=== PATIENT | female | born 1965 | race Asian ===

== ENCOUNTER 2019-08-13 05:46 | Emergency (ER) | payer MEDICAID ==
[~2019-08-13] VITALS: Ht 165.1 cm; Wt 78.0 kg
[2019-08-13 05:54] VITALS: BP_SYST 165
--- NOTE | 2019-08-13 06:03 | NUR ---
Pt placed to ER bed 04, to gown, to cardiac rehabilitation program director. Pt report given to TOMY Gonzalez.
--- NOTE | 2019-08-13 06:15 | NUR ---
Dr. Mosquera at bedside.
--- NOTE | 2019-08-13 06:20 | NUR ---
Pt brought in by . Pt awake, alert, oriented x4. Pt states that she has been to many hospitals for blood tests and treatment, pt states that she has had a headache for two months, and a constant "burning all of my insides". Pt rates headache and persistent "all over internal burning" as 10/10 pain. Pt denies chest pain, nausea, vomiting, diarrhea, shortness of breath or other medical complaint at this time. Pt states that she does not want labs, xrays, ekg, as she already had all of these tests done multiple times with no acceptable result. Pt appears anxious and unrested. pt states she feels anxious. pt is not guarding, no s/s of acute distress.VSS
[2019-08-13] MEDS ORDERED: LORazepam 2 MG/ML VIAL IVP ONE (06:30)
--- NOTE | 2019-08-13 06:30 | NUR ---
Pt refused blood draw, EKG, Xrays
--- NOTE | 2019-08-13 06:40 | NUR ---
Pt went to cafeteria for food.
[2019-08-13 07:15] VITALS: BP_SYST 144
--- NOTE | 2019-08-13 07:15 | NUR ---
Patient given written and verbal discharge instructions and verbalizes understanding. ER MD discussed with patient the results and treatment provided. Patient in stable condition. ID arm band removed. IV catheter removed intact and dressing applied, no active bleeding. No Rx given. Patient educated on pain management and to follow up with PMD. Pain Scale 0/10. Opportunity for questions provided and answered.
== END 2019-08-13 07:15 | disposition home or self-care (01) ==
LOC: SED 05:46
DX: F45.0 Somatization disorder (principal); I10 Essential (primary) hypertension; F41.9 Anxiety disorder, unspecified
CPT/HCPCS: 96374; 99283; J2060

== ENCOUNTER 2019-11-19 23:51 | Emergency (ER) | payer MEDICAID ==
[~2019-11-19] VITALS: Ht 170.2 cm; Wt 81.6 kg
[2019-11-19 23:51] VITALS: BP_SYST 177
[2019-11-20] MEDS: NACL 0.9% 1,000 ML IV ONE ×2 (00:14→01:23)
[2019-11-20] MEDS: ONDANSETRON HCL 4 MG/2 ML VIAL IVP ONE (00:15)
[2019-11-20] MEDS: KETOROLAC TROMETHAMINE 30 MG VIAL IVP ONE (00:15)
[2019-11-20] MEDS: DIPHENHYDRAMINE INJ 50 MG/ML VIAL IVP ONE (00:16)
[2019-11-20 00:55] LABS: BASOPHILS # (AUTO) 0.1 K/uL (0.0-0.2); BASOPHILS % (AUTO) 1.1 % (0.0-2.0); EOSINOPHILS # (AUTO) 0.1 K/uL (0.0-0.4); EOSINOPHILS % (AUTO) 1.1 % (0.0-4.0); HEMATOCRIT 38.2 % (36-48); HEMOGLOBIN 12.5 g/dL (12.0-16.0); LYMPHOCYTES # (AUTO) 3.9 K/uL (1.0-5.5); LYMPHOCYTES % (AUTO) 36.8 % (20.5-51.5); MEAN CORPUSCULAR HEMOGLOBIN 29 pg (27-31); MEAN CORPUSCULAR HGB CONC 33 % (32-36); MEAN CORPUSCULAR VOLUME 88 fL (79.0-98.0); MONOCYTES # (AUTO) 0.7 K/uL (0.0-1.0); MONOCYTES % (AUTO) 6.7 % (1.7-9.3); NEUTROPHILS # (AUTO) 5.7 K/uL (1.8-7.7); NEUTROPHILS % (AUTO) 54.3 % (40.0-70.0); PLATELET COUNT (AUTO) 319 K/uL (130-430); RED BLOOD CELL COUNT(AUTO) 4.36 MIL/uL (4.2-6.2); RED CELL DISTRIBUTION WIDTH 14.9 % (9.0-15.0); WHITE BLOOD COUNT (AUTO) 10.5 K/uL (4.8-10.8)
[2019-11-20 01:09] LABS: CALCIUM 8.5 mg/dL (8.4-11.0); CREATININE 0.84 mg/dL (0.55-1.30); POTASSIUM 3.6 mmol/L (3.5-5.1)
[2019-11-20 01:20] LABS: ALBUMIN 3.2 g/dL (3.4-4.8); TOTAL BILIRUBIN 0.2 mg/dL (0.0-1.0)
[2019-11-20 02:10] VITALS: BP_SYST 143
== END 2019-11-20 02:10 | disposition home or self-care (01) ==
LOC: SED 23:51
DX: G44.209 Tension-type headache, unspecified, not intractable (principal); I10 Essential (primary) hypertension; F41.9 Anxiety disorder, unspecified
CPT/HCPCS: 36415; 80053; 83690; 85025; 96374; 96375; 99284; J1200; J1885; J2405; J7030

== ENCOUNTER 2020-03-27 22:47 | Emergency (ER) | payer MEDICAID, SELFPAY ==
[~2020-03-27] VITALS: Ht 167.6 cm; Wt 77.1 kg
[2020-03-27 22:47] VITALS: BP_SYST 151
--- NOTE | 2020-03-27 22:47 | NUR ---
Patient to ER bed 3 to gown for evaluation. Side rails up. Report given to NOVEMBER.
--- NOTE | 2020-03-27 22:55 | NUR ---
Patient to ER bed 3 to gown for evaluation. Side rails up.
--- NOTE | 2020-03-27 22:56 | NUR ---
Patient came to ER with family. C/O chest pain x today. Patient states "had chest pain since 1730 PM today, had chest pain over 1 year, my doctor said heart normal after ran test, had NTG for chest pain." Hx HTN per patient.
--- NOTE | 2020-03-27 22:57 | NUR ---
ER at bedside examining patient.
[2020-03-27] MEDS ORDERED: ASPIRIN 325 MG TABLET PO ONE (23:15)
[2020-03-27] MEDS ORDERED: ENOXAPARIN SODIUM 80 MG/0.8 ML SYRINGE SUBCUT ONE (23:15)
--- NOTE | 2020-03-27 23:15 | NUR ---
# 22 gauge angiocath placed to RAC. Use of asceptic technique. Opsite placed over site. Blood return noted. Blood for lab drawn from site. Flushed with 10 cc of normal saline. No evidence of infiltration noted. Patient tolerated well.
--- NOTE | 2020-03-27 23:23 | NUR ---
X-ray at bedside.
[2020-03-27 23:27] LABS: MEAN CORPUSCULAR VOLUME 86 fL (79.0-98.0)
[2020-03-27] MEDS ORDERED: MORPHINE 4 MG/ML INJ. SYRINGE IVP ONE (23:30)
[2020-03-27] MEDS ORDERED: NITROGLYCERIN 1 INCH (GM) OINT. TP ONE (23:30)
[2020-03-27 23:32] LABS: BASOPHILS # (AUTO) 0.1 K/uL (0.0-0.2); BASOPHILS % (AUTO) 1.3 % (0.0-2.0); EOSINOPHILS # (AUTO) 0.2 K/uL (0.0-0.4); EOSINOPHILS % (AUTO) 1.9 % (0.0-4.0); HEMATOCRIT 38.5 % (36-48); HEMOGLOBIN 12.9 g/dL (12.0-16.0); LYMPHOCYTES # (AUTO) 5.9 K/uL (1.0-5.5); LYMPHOCYTES % (AUTO) 51.2 % (20.5-51.5); MEAN CORPUSCULAR HEMOGLOBIN 29 pg (27-31); MEAN CORPUSCULAR HGB CONC 34 % (32-36); MONOCYTES # (AUTO) 0.7 K/uL (0.0-1.0); MONOCYTES % (AUTO) 6.5 % (1.7-9.3); NEUTROPHILS # (AUTO) 4.5 K/uL (1.8-7.7); NEUTROPHILS % (AUTO) 39.1 % (40.0-70.0); PLATELET COUNT (AUTO) 363 K/uL (130-430); RED BLOOD CELL COUNT(AUTO) 4.46 MIL/uL (4.2-6.2); RED CELL DISTRIBUTION WIDTH 14.9 % (9.0-15.0); WHITE BLOOD COUNT (AUTO) 11.4 K/uL (4.8-10.8)
[2020-03-27 23:35] LABS: CALCIUM 9.6 mg/dL (8.4-11.0); CREATININE 1.04 mg/dL (0.55-1.30); POTASSIUM 4.1 mmol/L (3.5-5.1)
[2020-03-27 23:40] LABS: PROTHROMBIN TIME 9.9 SECS (9.5-12.5)
[2020-03-27 23:41] LABS: ALBUMIN 3.6 g/dL (3.4-4.8); TOTAL BILIRUBIN 0.2 mg/dL (0.0-1.0)
--- NOTE | 2020-03-28 01:42 | NUR ---
Swabbed Covid-19 and sent to lab.
--- NOTE | 2020-03-28 01:51 | NUR ---
Patient to be transferred to [facility]. Is being transferred due to higher level of care. Receiving facility has accepting physician and available space. ER physician has signed transfer form. Patient or responsible democrat has agreed to transfer and signed form. Patient belongings inventoried and will be sent with patient. Copy of nursing notes, lab reports, EKG, Physicians Orders and X-rays to be sent with patient. Report called to TOMY Yepez at receiving facility. Receiving physician is Dr. Thomosn. [facility] ambulance service has been called for transfer. ETA is 45 Mins.
--- NOTE | 2020-03-28 01:51 | NUR ---
Note undone in EDM - 03/28/20 at 0153 by [id number] Patient to be transferred to [facility]. Is being transferred due to higher level of care. Receiving facility has accepting physician and available space. ER physician has signed transfer form. Patient or responsible alliance party has agreed to transfer and signed form. Patient belongings inventoried and will be sent with patient. Copy of nursing notes, lab reports, EKG, Physicians Orders and X-rays to be sent with patient. Report called to TOMY Yepez at receiving facility. Receiving physician is Dr. Thomson. [facility] ambulance service has been called for transfer. ETA is 45 Mins.
--- NOTE | 2020-03-28 02:02 | NUR ---
ER at bedside for treatment plan and eval.
--- NOTE | 2020-03-28 03:30 | NUR ---
Spoke to TOMY Yepez ([facility]) to update patient's status and lab result.
[2020-03-28 03:33] VITALS: BP_SYST 130
--- NOTE | 2020-03-28 03:33 | NUR ---
Patient will transfer to [facility] via [facility].
== END 2020-03-28 03:33 | disposition short-term general hospital (02) ==
LOC: SED 22:47
DX: I20.0 Unstable angina (principal); R07.89 Other chest pain; F41.9 Anxiety disorder, unspecified; I10 Essential (primary) hypertension
CPT/HCPCS: 36415; 71045; 80053; 83880; 84484; 85025; 85379; 85610; 85730; 87426; 96372; 96374; 99291; J1650; J2270

== ENCOUNTER 2020-05-07 01:12 | Emergency (ER) | payer MEDICAID, SELFPAY ==
[~2020-05-07] VITALS: Ht 165.1 cm; Wt 74.8 kg
[2020-05-07 01:17] VITALS: BP_SYST 160
--- NOTE | 2020-05-07 01:25 | NUR ---
Patient to ER bed 7 to gown for evaluation. Side rails up. Report given to Basia HUITRON.
--- NOTE | 2020-05-07 01:32 | NUR ---
ER DR. KAPOOR AT THE BEDSIDE
--- NOTE | 2020-05-07 01:40 | NUR ---
PT PRESENTS FROM HOME WITH C/O HEADACHE WITH N/V 1 HOUR PRIOR TO ARRIVAL. PT REPORTS NAUSEA FOR MOST OF THE DAY AND DID NOT EAT MUCH. REPORTS FREQUENT HEADACHES FOR SEVERAL WEEKS. AAOX4, V/S STABLE, HTN 160/103. GARCIA 03/09. WILL CONTINUE TO MONITOR
[2020-05-07] MEDS ORDERED: KETOROLAC TROMETHAMINE 30 MG VIAL IM ONE (01:45)
[2020-05-07] MEDS ORDERED: hydrALAZINE HCL 20 MG/ML VIAL IM ONE (01:45)
--- NOTE | 2020-05-07 01:45 | NUR ---
Patient transported to radiology via WC, accompanied by STAFF.
[2020-05-07] MEDS ORDERED: ACETAMINOPHEN 500 MG TABLET PO ONE (04:30)
[2020-05-07 05:15] VITALS: BP_SYST 124
--- NOTE | 2020-05-07 05:15 | NUR ---
Patient given written and verbal discharge instructions and verbalizes understanding. ER MD discussed with patient the results and treatment provided. Patient in stable condition. ID arm band removed. Rx of IBUPROFEN given. Patient educated on pain management and to follow up with PMD. Pain Scale 0/10. Opportunity for questions provided and answered. Medication side effect fact sheet provided.
== END 2020-05-07 05:15 | disposition home or self-care (01) ==
LOC: SED 01:12
DX: I16.1 Hypertensive emergency (principal); I10 Essential (primary) hypertension; R51.9 Headache, unspecified; F41.9 Anxiety disorder, unspecified
CPT/HCPCS: 70450; 93005; 96372; 99291; J1885

== ENCOUNTER 2020-05-16 18:46 | Emergency (ER) | payer MEDICAID ==
[~2020-05-16] VITALS: Ht 165.1 cm; Wt 74.8 kg
[2020-05-16 19:03] VITALS: BP_SYST 184
--- NOTE | 2020-05-16 19:03 | NUR ---
Patient to ER bed 03 to gown for evaluation. Side rails up. Report given to TOMY Moses
--- NOTE | 2020-05-16 19:09 | NUR ---
ER Dr. Burden at bedside examining patient.
[2020-05-16] MEDS ORDERED: ONDANSETRON HCL 4 MG/2 ML VIAL IVP ONE (19:15)
[2020-05-16] MEDS ORDERED: LORazepam 2 MG/ML VIAL IVP ONE (19:15)
[2020-05-16] MEDS ORDERED: hydrALAZINE HCL 20 MG/ML VIAL IVP ONE (19:15)
[2020-05-16] MEDS ORDERED: MORPHINE 4 MG/ML INJ. SYRINGE IVP ONE (19:15)
[2020-05-16] MEDS ORDERED: ENALAPRILAT DIHYDRATE 1.25 MG/ML VIAL IVP ONE (19:15)
--- NOTE | 2020-05-16 19:16 | NUR ---
pt a&o x4 from home c/o of posterior headache started 2 hours ago. pt c/o of nausea. pt hx of HTN and took metoprolol 25mg about 2 hours ago. pt states pain is 10/10.
--- NOTE | 2020-05-16 19:20 | NUR ---
# 20 gauge angiocath placed to LAC. Use of asceptic technique. Opsite placed over site. Blood return noted. Blood for lab drawn from site. Flushed with 10 cc of normal saline. No evidence of infiltration noted. Patient tolerated well.
[2020-05-16 19:36] LABS: BASOPHILS # (AUTO) 0.1 K/uL (0.0-0.2); BASOPHILS % (AUTO) 0.7 % (0.0-2.0); EOSINOPHILS # (AUTO) 0.1 K/uL (0.0-0.4); EOSINOPHILS % (AUTO) 1.5 % (0.0-4.0); HEMATOCRIT 37.5 % (36-48); HEMOGLOBIN 12.5 g/dL (12.0-16.0); LYMPHOCYTES # (AUTO) 4.2 K/uL (1.0-5.5); LYMPHOCYTES % (AUTO) 44.4 % (20.5-51.5); MEAN CORPUSCULAR HEMOGLOBIN 29 pg (27-31); MEAN CORPUSCULAR HGB CONC 33 % (32-36); MEAN CORPUSCULAR VOLUME 86 fL (79.0-98.0); MONOCYTES # (AUTO) 0.7 K/uL (0.0-1.0); MONOCYTES % (AUTO) 7.7 % (1.7-9.3); NEUTROPHILS # (AUTO) 4.4 K/uL (1.8-7.7); NEUTROPHILS % (AUTO) 45.7 % (40.0-70.0); PLATELET COUNT (AUTO) 321 K/uL (130-430); RED BLOOD CELL COUNT(AUTO) 4.34 MIL/uL (4.2-6.2); RED CELL DISTRIBUTION WIDTH 14.8 % (9.0-15.0); WHITE BLOOD COUNT (AUTO) 9.5 K/uL (4.8-10.8)
[2020-05-16 19:41] LABS: ANION GAP 9 (5-15); CALCIUM 8.8 mg/dL (8.4-11.0); CHLORIDE 98 mmol/L (98-107); CREATININE 0.73 mg/dL (0.55-1.30); GLUCOSE 141 mg/dL (70-99); POTASSIUM 3.4 mmol/L (3.5-5.1); SODIUM SERUM 134 mmol/L (136-145); UREA NITROGEN, BLOOD 12 mg/dL (8-21)
[2020-05-16 19:42] LABS: GFR AFRICAN AMERICAN 107 mL/min (>90)
[2020-05-16 19:49] LABS: ALANINE AMINOTRANSFERASE 24 U/L (12-78); ALBUMIN 3.5 g/dL (3.4-4.8); ASPARTATE AMINOTRANSFERASE 15 U/L (10-37); TOTAL BILIRUBIN 0.1 mg/dL (0.0-1.0)
[2020-05-16] MEDS ORDERED: NACL 0.9% 1,000 ML IV ONE (20:00)
--- NOTE | 2020-05-16 20:28 | NUR ---
pt resting in bed comfortably, heart rate 135. md aware. no signs of acute distress, breathing even and unlabored.
--- NOTE | 2020-05-16 20:28 | NUR ---
Jamia adame in ED - 05/16/20 at 2212 by ANDERSON pt resting in bed comfortably, heart rate 135. aware.
[2020-05-16] MEDS ORDERED: PROCHLORPERAZINE EDISYLATE 10 MG/2 ML VIAL IVP ONE (20:45)
[2020-05-16] MEDS ORDERED: methylPREDNISolone SOD SUCC/PF 62.5 MG/ML VIAL IVP ONE (20:45)
[2020-05-16] MEDS ORDERED: DIPHENHYDRAMINE INJ 50 MG/ML VIAL IVP ONE (20:45)
[2020-05-16] MEDS: METOPROLOL TARTRATE 5 MG/5 ML VIAL IVP ONE ×2 (21:04→21:24)
--- NOTE | 2020-05-16 21:10 | NUR ---
pt refused compazine, benadryl, and solu-medrol. pt states headache is now a 4 out of 10.
[2020-05-16] MEDS ORDERED: METOPROLOL TARTRATE 5 MG/5 ML VIAL IVP ONE (21:15)
--- NOTE | 2020-05-16 21:18 | NUR ---
2.5mg of Metoprolol given IVP per MD order. pts HR 137.
[2020-05-16] MEDS ORDERED: METOPROLOL TARTRATE 5 MG/5 ML VIAL ONE (21:30)
[2020-05-16 22:00] VITALS: BP_SYST 119
--- NOTE | 2020-05-16 22:00 | NUR ---
Patient given written and verbal discharge instructions and verbalizes understanding. ER MD discussed with patient the results and treatment provided. Patient in stable condition. ID arm band removed. IV catheter removed intact and dressing applied, no active bleeding. Rx of hydrochlorothiazide given. Patient educated on pain management and to follow up with PMD. Pain Scale 3/10. Opportunity for questions provided and answered. Medication side effect fact sheet provided.
== END 2020-05-16 22:00 | disposition home or self-care (01) ==
LOC: SED 18:46
DX: I16.0 Hypertensive urgency (principal); R00.0 Tachycardia, unspecified; R51.9 Headache, unspecified
CPT/HCPCS: 36415; 80053; 84484; 85025; 93005; 96361; 96374; 96375; 99285; J0360; J2060; J2270; J2405; J3490; J7030; J0780; J1200; J2930

== ENCOUNTER 2020-06-07 17:04 | Emergency (ER) | payer MEDICAID ==
[~2020-06-07] VITALS: Ht 165.1 cm; Wt 79.4 kg
[2020-06-07 17:22] VITALS: BP_SYST 162
--- NOTE | 2020-06-07 17:22 | NUR ---
Patient to ER bed 7 to gown for evaluation. Side rails up.
--- NOTE | 2020-06-07 17:30 | NUR ---
pt arrives w/ right sided abd pain, that radiates to the mid abd. 05/09. sharp, constant pain. Pt denies N/V/D. Pt is currently afebrile.
--- NOTE | 2020-06-07 17:35 | NUR ---
ER at bedside examining patient.
[2020-06-07] MEDS ORDERED: NACL 0.9% 1,000 ML IV ONE (17:45)
[2020-06-07] MEDS ORDERED: KETOROLAC TROMETHAMINE 30 MG VIAL IVP ONE (17:45)
--- NOTE | 2020-06-07 17:50 | NUR ---
medicated the pt w/ NS 1l and Toradol per MD order
[2020-06-07 18:25] VITALS: BP_SYST 162
--- NOTE | 2020-06-07 18:26 | NUR ---
Patient given written and verbal discharge instructions and verbalizes understanding. ER MD discussed with patient the results and treatment provided. Patient in stable condition. ID arm band removed. IV catheter removed intact and dressing applied, no active bleeding. Rx of [place], Motrin, and Prilosec given. Patient educated on pain management and to follow up with PMD. Pain Scale 3/10. Opportunity for questions provided and answered. Medication side effect fact sheet provided.
== END 2020-06-07 18:25 | disposition home or self-care (01) ==
LOC: SED 17:04
DX: R10.11 Right upper quadrant pain (principal); I10 Essential (primary) hypertension; F41.9 Anxiety disorder, unspecified
CPT/HCPCS: 81002; 81025; 96361; 96374; 99283; J1885; J7030

== ENCOUNTER 2020-09-19 12:54 | Emergency (ER) | payer MEDICAID ==
[~2020-09-19] VITALS: Ht 160 cm; Wt 81.6 kg
[2020-09-19 13:05] VITALS: BP_SYST 155
[2020-09-19 15:19] VITALS: BP_SYST 149
== END 2020-09-19 15:15 | disposition home or self-care (01) ==
LOC: SED 12:54
DX: H11.32 Conjunctival hemorrhage, left eye (principal); R51.9 Headache, unspecified; I10 Essential (primary) hypertension; F41.9 Anxiety disorder, unspecified
CPT/HCPCS: 70450-TC; 76376; 99284

== ENCOUNTER 2020-10-22 19:20 | Emergency (ER) | payer MEDICAID ==
[~2020-10-22] VITALS: Ht 160 cm; Wt 81.6 kg
[2020-10-22 19:31] VITALS: BP_SYST 165
[2020-10-22] MEDS ORDERED: ACETAMINOPHEN 500 MG TABLET ONE (19:52)
[2020-10-22] MEDS ORDERED: CLON0.1T PO ×2 (19:56→20:06)
[2020-10-22] MEDS ORDERED: LOSA25TA3 PO (19:56)
[2020-10-22] MEDS ORDERED: ACETAMINOPHEN 500 MG TABLET PO ONE (20:00)
[2020-10-22 20:07] VITALS: BP_SYST 156
== END 2020-10-22 20:07 | disposition home or self-care (01) ==
LOC: SED 19:20
DX: I10 Essential (primary) hypertension (principal); F41.9 Anxiety disorder, unspecified; Z79.899 Other long term (current) drug therapy
CPT/HCPCS: 93005; 99283

== ENCOUNTER 2020-11-23 17:12 | Emergency (ER) | payer MEDICAID ==
[~2020-11-23 17:12] MED LIST: CLON0.1T PO; LOSA25TA3 PO
== END 2020-11-23 19:00 | disposition left against medical advice (07) ==
LOC: SED 17:12
DX: Z00.00 Encounter for general adult medical examination without abnormal findings (principal); Z53.21 Procedure and treatment not carried out due to patient leaving prior to being seen by health care provider

== ENCOUNTER 2021-01-13 10:55 | Emergency (ER) | payer MEDICAID ==
[~2021-01-13] VITALS: Ht 165.1 cm; Wt 77.1 kg
[2021-01-13 10:55] VITALS: BP_SYST 153
[2021-01-13] MEDS ORDERED: MORPHINE 4 MG INJ. 4 MG/ML VIAL IVP ONE (11:45)
[2021-01-13] MEDS ORDERED: DIPHENHYDRAMINE INJ 50 MG/ML VIAL IVP ONE (11:45)
[2021-01-13] MEDS ORDERED: NACL 0.9% 1,000 ML IV ONE (11:45)
[2021-01-13 12:19] LABS: BILIRUBIN,URINE NEGATIVE (NEGATIVE); BLOOD, URINE 2+ (NEGATIVE); COLOR,URINE YELLOW (YELLOW); GLUCOSE,URINE NEGATIVE (NEGATIVE); KETONES,URINE NEGATIVE (NEGATIVE); LEUKOCYTE ESTERASE ,URINE NEGATIVE (NEGATIVE); NITRITE, URINE NEGATIVE (NEGATIVE); PROTEIN URINE NEGATIVE (NEGATIVE); UROBILINOGEN,URINE 0.2 (0.2-1.0)
[2021-01-13 12:25] LABS: CLARITY/URINE CLOUDY (CLEAR)
[2021-01-13 12:28] LABS: CALCIUM 9.3 mg/dL (8.4-11.0); CREATININE 0.74 mg/dL (0.55-1.30); POTASSIUM 4.3 mmol/L (3.5-5.1)
[2021-01-13 12:29] LABS: BASOPHILS # (AUTO) 0.1 K/uL (0.0-0.2); BASOPHILS % (AUTO) 0.9 % (0.0-2.0); EOSINOPHILS # (AUTO) 0.1 K/uL (0.0-0.4); EOSINOPHILS % (AUTO) 1.4 % (0.0-4.0); HEMATOCRIT 37.8 % (36-48); HEMOGLOBIN 12.6 g/dL (12.0-16.0); LYMPHOCYTES % (AUTO) 38.2 % (20.5-51.5); MEAN CORPUSCULAR HEMOGLOBIN 29 pg (27-31); MEAN CORPUSCULAR HGB CONC 33 % (32-36); MEAN CORPUSCULAR VOLUME 86 fL (79.0-98.0); MONOCYTES # (AUTO) 0.6 K/uL (0.0-1.0); MONOCYTES % (AUTO) 7.6 % (1.7-9.3); NEUTROPHILS % (AUTO) 51.9 % (40.0-70.0); PLATELET COUNT (AUTO) 316 K/uL (130-430); RED BLOOD CELL COUNT(AUTO) 4.37 MIL/uL (4.2-6.2); RED CELL DISTRIBUTION WIDTH 14.8 % (9.0-15.0); WHITE BLOOD COUNT (AUTO) 7.8 K/uL (4.8-10.8)
[2021-01-13 12:33] LABS: PROTHROMBIN TIME 9.8 SECS (9.5-12.5)
[2021-01-13 12:34] LABS: ALBUMIN 3.5 g/dL (3.4-4.8); TOTAL BILIRUBIN 0.3 mg/dL (0.0-1.0)
[2021-01-13 12:42] LABS: WBC,URINE 0-3 /HPF (0-3)
[2021-01-13 12:43] LABS: BACTERIA,URINE FEW /HPF (None Seen)
[2021-01-13 14:52] VITALS: BP_SYST 139
== END 2021-01-13 14:50 | disposition home or self-care (01) ==
LOC: SED 10:55
DX: R10.2 Pelvic and perineal pain (principal); N94.10 Unspecified dyspareunia; I10 Essential (primary) hypertension; F41.9 Anxiety disorder, unspecified; F32.9 Major depressive disorder, single episode, unspecified
CPT/HCPCS: 36415; 71045; 74176; 76376; 80053; 81000; 83605; 83690; 85025; 85610; 85730; 87040; 96361; 96374; 96375; 99285; J1200; J2270; J7030

== ENCOUNTER 2021-06-06 03:49 | Emergency (ER) | payer MEDICAID ==
[~2021-06-06] VITALS: Ht 165.1 cm; Wt 77.1 kg
[2021-06-06 03:59] VITALS: BP_SYST 176
--- NOTE | 2021-06-06 04:09 | NUR ---
Patient to ER bed 7 to gown for evaluation. Side rails up.
--- NOTE | 2021-06-06 04:10 | NUR ---
Patient BIB by family from home. C/O Headache x 2 weeks. Patient reported, had headache for 2 weeks, Hx Migraine. Patient took medication, no relief. A/O,X4, headache, pain rate 10/10, no dizziness.
[2021-06-06] MEDS ORDERED: EFF37 PO (04:11)
[2021-06-06] MEDS ORDERED: VERA80TA7 PO (04:11)
--- NOTE | 2021-06-06 04:24 | NUR ---
CARRIE Flores at bedside examining patient.
[2021-06-06] MEDS ORDERED: NACL 0.9% 1,000 ML IV ONE (04:30)
[2021-06-06] MEDS ORDERED: METOCLOPRAMIDE HCL 10 MG/2 ML VIAL IVP ONE (04:30)
--- NOTE | 2021-06-06 05:08 | NUR ---
Patient refused CT scan, Dr. Flores notified.
[2021-06-06 06:20] VITALS: BP_SYST 140
--- NOTE | 2021-06-06 06:20 | NUR ---
Patient given written and verbal discharge instructions and verbalizes understanding. ER MD discussed with patient the results and treatment provided. Patient in stable condition. ID arm band removed. IV catheter removed intact and dressing applied, no active bleeding. No Rx given. Patient educated on pain management and to follow up with PMD. Pain Scale 1/10. Opportunity for questions provided and answered.
== END 2021-06-06 06:20 | disposition home or self-care (01) ==
LOC: SED 03:49
DX: R51.9 Headache, unspecified (principal); I10 Essential (primary) hypertension; Z79.899 Other long term (current) drug therapy
CPT/HCPCS: 96361; 96374; 99291; J2765; J7030; 99283

== ENCOUNTER 2023-04-09 18:05 | Emergency (ER) | payer MEDICAID ==
[~2023-04-09] VITALS: Ht 167.6 cm; Wt 77.1 kg
[2023-04-09 18:05] VITALS: BP_SYST 136; PULSE 71; RESP 18; TEMP 97.6; O2SAT 98
[~2023-04-09 18:05] MED LIST changes: -CLON0.1T PO; +EFF37 PO; -LOSA25TA3 PO; +VERA80TA7 PO
== END 2023-04-09 19:01 | disposition left against medical advice (07) ==
LOC: SED 18:05
DX: R51.9 Headache, unspecified (principal); Z53.21 Procedure and treatment not carried out due to patient leaving prior to being seen by health care provider
CPT/HCPCS: 99281